=== PATIENT | male | born 1975 | race Caucasian/White ===

== ENCOUNTER 2016-12-17 15:53 | Emergency (ER) | payer OTHER ==
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
== END 2016-12-17 17:36 | disposition home or self-care (01) ==
LOC: ED 15:53
DX: S93.401A Sprain of unspecified ligament of right ankle, initial encounter (principal); V28.4XXA Motorcycle driver injured in noncollision transport accident in traffic accident, initial encounter; Y92.410 Unspecified street and highway as the place of occurrence of the external cause